=== PATIENT | female | born 1985 | race Caucasian/White ===

== ENCOUNTER 2017-05-07 13:03 | Emergency (ER) | payer OTHER ==
[~2017-05-07] VITALS: Ht 162.6 cm; Wt 63.5 kg
[2017-05-07 13:49] VITALS: BP 139/92
--- NOTE | 2017-05-07 13:59 | ER.PDOC ---
General Chief Complaint: Abdomen Pain Stated Complaint: ABD PAIN,SORE THROAT Time seen by MD: 13:51 Source: patient Exam Limitations: no limitations History of Present Illness Initial Comments Last few days she has felt feverish, malaise, scratchy throat and lately right UQ abdominal pain and high fever Timing/Duration: 1 week Severity/Quality: moderate Radiation: RUQ, epigastric, periumbilical, flank Associated Symptoms: nausea/vomiting Allergies: Coded Allergies: No Known Allergies (Unverified , 05/07/17) Vital Signs First Vital Signs Date Time Temp Pulse Resp B/P (MAP) Pulse Ox O2 Delivery O2 Flow Rate FiO2 05/07/17 13:45 98.1 86 18 96 Last Vital Signs Date Time Temp Pulse Resp B/P (MAP) Pulse Ox O2 Delivery O2 Flow Rate FiO2 05/07/17 13:45 98.1 86 18 96 Past Medical History Medical History: no pertinent history Surgical History: cholecystectomy LMP (females 10-50): 2 WEEKS AGO Social History Smoking: non-smoker Alcohol Use: none Drug Use: none Constitutional: chills, malaise EENTM: throat pain Respiratory: no symptoms reported Cardiovascular: no symptoms reported Gastrointestinal: see HPI, abdominal pain (RUQ pain), nausea, poor appetite Genitourinary: see HPI Musculoskeletal: no symptoms reported Skin: no symptoms reported Psychiatric/Neurological: no symptoms reported Endocrine: no symptoms reported Hematologic/Lymphatic: no symptoms reported Physical Exam General Appearance: No Apparent Distress, WD/WN HEENT: Pharyngeal Erythema Neck: Non-Tender, Full Range of Motion, Supple, Normal Inspection Respiratory: chest non-tender, lungs clear, normal breath sounds, no respiratory distress, no accessory muscle use Cardiovascular: Normal Peripheral Pulses, Regular Rate, Rhythm, No Edema, No Gallop, No JVD, No Murmur Gastrointestinal: Normal Bowel Sounds, No Organomegaly, Soft, Tenderness ( periumbilical area and RUQ) Back: Normal Inspection, No CVA Tenderness, No Vertebral Tenderness Extremities: Normal Range of Motion, Non-Tender, Normal Inspection, No Pedal Edema, No Calf Tenderness, Normal Capillary Refill, Pelvis Stable 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, No Motor/Sensory Deficits, Alert, Normal Mood/Affect, Oriented x 3 Skin: Normal Color, Warm/Dry Lymphatic: No Adenopathy Progress Progress Pain slightly improved, CT negative, US right ovarian cysts (2) Course Blood Pressure Systolic: 139 Blood Pressure Diastolic: 92 Blood Pressure Mean: 108 Departure Time of Disposition: 20:46 Disposition: 01 HOME, SELF-CARE Impression: Primary Impression: Ovarian cyst Additional Impression: Right lower quadrant pain Condition: Stable Patient Instructions: Abdominal Pain, Ovarian Cyst Referrals: PCP,UNKNOWN (PCP) PRIMARY CARE PROVIDER Duration or Time Spent with Pa: 45 Problem Qualifiers RASHAD MCADAMS MD May 07, 2017 13:58
[2017-05-07] MEDS ORDERED: TORADOL IV STA (14:01)
[2017-05-07 14:16] LABS: BASOPHIL % 0.1 % (0.0-0.2); EOSINOPHIL # 0.1 10^3/uL (0.0-0.2); HEMOGLOBIN 12.9 g/dL (12.0-15.0); LYMPHOCYTES # 1.4 10^3/uL (1.0-4.8); LYMPHOCYTES % 19.7 % (24.0-44.0); MEAN CELL HGB 31.5 pg (26-34); MEAN CELL HGB CONCENTRATION 32.2 g/dL (33-37); MONOCYTES # 0.5 10^3/uL (0.3-0.8); NEUTROPHIL # 5.1 10^3/uL (1.8-7.7); NEUTROPHILS % 71.2 % (41.0-85.0); RED CELL DISTRIBUTION WIDTH 14.3 % (11.5-14.5); WHITE BLOOD CELL 7.1 10^3/uL (4.5-11.0)
[2017-05-07] MEDS ORDERED: TORADOL ONE (14:17)
[2017-05-07] MEDS ORDERED: NS 1000ML 1,000 ML ONE (14:18)
[2017-05-07 14:20] LABS: BILIRUBIN,URINE NEGATIVE (NEGATIVE); UROBILINOGEN,URINE NORMAL (NEGATIVE)
[2017-05-07 14:26] LABS: APPEARANCE,URINE HAZY (CLEAR); UA COLOR YELLOW (YELLOW); WBC,URINE 0-2 WBC/HPF (0-2)
[2017-05-07] MEDS ORDERED: NS 1000ML 1,000 ML IV ONE (14:30)
[2017-05-07 14:33] LABS: CALCIUM 8.5 mg/dL (8.4-10.5); CARBON DIOXIDE 26.3 mmol/L (20.0-32)
[2017-05-07 14:36] LABS: HCG QUALITATIVE SERUM NEGATIVE (NEGATIVE)
[2017-05-07] MEDS ORDERED: NUBAIN ONE (15:05)
[2017-05-07] MEDS ORDERED: PHENERGAN IV STA (15:06)
[2017-05-07] MEDS ORDERED: NUBAIN IV STA (15:06)
[2017-05-07] MEDS ORDERED: PHENERGAN ONE ×2 (15:06→20:41)
[2017-05-07] MEDS ORDERED: MORPHINE SULFATE ONE ×2 (15:50→20:42)
[2017-05-07] MEDS: MORPHINE SULFATE IV PRN ×2 (15:57→20:48)
[2017-05-07] MEDS ORDERED: DILAUDID ONE (17:36)
[2017-05-07] MEDS ORDERED: DILAUDID IV STA (17:37)
--- NOTE | 2017-05-07 17:41 | DIREP ---
CORRECTION Corrected on: 05/07/2017; PROCEDURE:CT ABD/PELVIS W&W/O COMPARISON:None. INDICATIONS:Abdominal pain TECHNIQUE:After obtaining the patient's consent, CT images of the abdomen and pelvis were created without contrast. Following non-ionic intravenous contrast, arterial and venous images of the abdomen were obtained. 5 minute delayed images through the abdomen and pelvis were acquired. Sagittal and coronal reconstructions are provided. Oral contrast was administered FINDINGS: LIMITED CHEST:Lung bases are clear. Bilateral breast implants. BILLIARY:Cholecystectomy. LIVER:Normal. PANCREAS:Normal. SPLEEN:Normal. KIDNEYS:Normal. ADRENALS:Normal. AORTA/VASCULAR:Normal for age. RETROPERITONEUM:Normal. BOWEL/MESENTERY:Normal. Limited by lack of oral contrast. The appendix was not visualized, however there is no evidence of pericecal inflammatory process. ABDOMINAL WALL:Normal. PELVIC NODES:Normal. PELVIC ORGANS:Normal. BONES:Normal for age CONCLUSION:No evidence of acute intra-abdominal or pelvic abnormality. Dictated by: Nehemiah Cagle M.D. on 05/07/2017 at 05:26 PM Dictated by: Nehemiah Cagle M.D. on 05/07/2017 at 06:25 PM
--- NOTE | 2017-05-07 18:24 | NUR ---
ULTRASOUND KATELYNN, , NOTIFIED OF US
[2017-05-07 18:34] VITALS: BP 103/38
--- NOTE | 2017-05-07 18:42 | NUR ---
STATUS PATINET COMPLAINING OF NAUSEA , PAIN 6/10 , DR MCADAMS AT BEDSIDE EXPLAINING PLAN OF CARE . PATIENT CONCERNED OF APPENDICITIS , DR MCADAMS EXPLAINED CT CLEAR AND ULTRASOUND NEXT STEP OF CARE , DR MCADAMS ADVISED PELVIC EXAM , PATIENT REFUSED
[2017-05-07] MEDS ORDERED: ZOFRAN ONE (18:44)
[2017-05-07] MEDS ORDERED: ZOFRAN IV STA (18:52)
--- NOTE | 2017-05-07 18:55 | NUR ---
ULTRASOUND PATIENT TO ULTRASOUND
[2017-05-07 20:27] VITALS: BP 134/87
--- NOTE | 2017-05-07 20:27 | DIREP ---
PROCEDURE:US PELVIS COMPLETE COMPARISON:[facility], CT, CT ABD/PELVIS W/WO, 05/07/2017, 04:58 PM. INDICATIONS:ABDOMINAL PAIN,Pelvic Pain TECHNIQUE:Pelvic ultrasound using transabdominal technique. Endovaginal images were also obtained for better assessment of the uterus and adnexa.. FINDINGS: Uterus Uterus Length:8.8 cm Uterus Height:4.57 cm Uterus Width:6.04 cm Endometrium Thickness:0.82 cm Ovaries Right Ovary Width:5.32 cm Right Ovary Length:3.69 cm Right Ovary Height:2.49 cm Left Ovary Width:2.66 cm Left Ovary Length:2.29 cm Left Ovary Height:1.77 cm UTERUS:Unremarkable appearance. Endometrial thickness is normal. OVARIES:There are 2 simple cysts or a septated cyst in the right ovary. The combination of cysts measures 1.8 x 3.9 by 1.9 cm. CUL-DE-SAC:Negative. OTHER:Negative. CONCLUSION: 1. Septated cyst or simple cyst in the right ovary may be functionally etiology. Left ovary and the uterus appear unremarkable. Recommend correlation with clinical laboratory findings to rule out the less likely possibility of ectopic . 2. No evidence of solid mass or hemorrhagic contents in the cysts. If clinically indicated, follow-up ultrasound may be obtained to rule out progressive enlargement. Dictated by: Rickie Riggins M.D. on 05/07/2017 at 08:20 PM
[2017-05-07 20:41] LABS: STREP SCREEN NEGATIVE (NEGATIVE)
[2017-05-07] MEDS ORDERED: PHENERGAN 25 MG in HNS 50ML 50 ML IV STA (20:50)
--- NOTE | 2017-05-07 20:51 | NUR ---
PHENERGAN PHENERGAN GIVEN 25MG GIVEN IV MIXED I 50ML 1/2 NS
[2017-05-07] MEDS ORDERED: PHENERGAN 25 MG in HNS 50ML 50 ML IV PRN (21:00)
[2017-05-07 21:12] VITALS: BP 101/58
[2017-05-07 21:21] VITALS: BP 101/58
== END 2017-05-07 21:12 | disposition home or self-care (01) ==
LOC: ER 13:03
DX: N83.201 Unspecified ovarian cyst, right side (principal); R50.9 Fever, unspecified; R11.2 Nausea with vomiting, unspecified; R07.0 Pain in throat; Z90.49 Acquired absence of other specified parts of digestive tract
CPT/HCPCS: 36415; 74178; 76830; 76856; 80053; 81000; 82150; 83690; 84703; 85025; 85610; 85730; 86677; 86710; 87070; 87086; 87880; 96361; 96374; 96375; 99285; J1170; J1885; J2270 ×2; J2300; J2405; J2550 ×2; J7030; Q9965